=== PATIENT | female | born 1950 | race Caucasian/White ===

== ENCOUNTER 2024-04-29 15:31 | Emergency (ER) | payer MEDICARE, OTHER, SELFPAY ==
[2024-04-29 15:32] VITALS: BP 168/82
--- NOTE | 2024-04-29 15:52 | ED.MUSCINJ ---
HPI-Injury
General
Chief Complaint: Fall
Source: patient
Exam Limitations: none
Time Seen by Provider: 04/29/24 15:39
Nursing documentation reviewed up to this point in time: agreed with
History of Present Illness-Injury
Initial Injury comments:
73-year-old female presents with mom complaining of a fall onto her right wrist. She denies hitting her head.
Past History
Past History
ED Past Medical History: HTN, Hypercholesterolemia and Hypothyroidism
ED Past Surgical History: Appendectomy, Gynecological (Uterine, D&C) and Tonsilectomy
Social History
Tobacco: Non-smoker
Alcohol: None
Drug: None
Living: with family
Review of Systems
Review of Systems
Allergies reviewed?: Yes
All Other Systems: Not applicable
Constitutional: Reports no symptoms
EENT: Reports no symptoms
Respiratory: Reports no symptoms
Cardiac: Reports no symptoms
ABD/GI: Reports no symptoms
: Reports no symptoms
Musculoskeletal: Reports joint pain (Right wrist pain )
Skin: Reports no symptoms
Neurological: Reports no symptoms
Endocrine: Reports no symptoms
Hematologic/Lymphatic: Reports no symptoms
Psychiatric: Reports no symptoms
Phy Exam
Physical Exam
Physical Exam:
Physical Exam
General: no apparent distress, not acutely ill
Neck: supple. no meningeal signs. normal posterior pharynx
Heart: equal radial pulses.
HEENT: Pupils equal round reactive to light, EOMI
Lungs: no acute respiratory distress.
Abdomen: Nondistended
Neuro: alert and oriented. no focal neurological deficits
Skin: no rash
Psychiatric: well kept. interactive and cooperative
Extremities: no edema. no calf tenderness. negative homans. good distal pulses, tender to palpation left lateral wrist
Injury Course
Orders/Labs/Results
Orders:
Orders
04/29/24 15:31
Hand, Right 3 View [CR Hand - Right Min 3 Views] Urgent
Comment:
Reason For Exam: pain
04/29/24 15:35
Wrist, Right 3 Views [CR Wrist - Right Min 3 Views] Urgent
Comment:
Reason For Exam: fall
04/29/24 16:05
Thumb Spica Right-Treatment ONCE
MDM/Problems Addressed
Differential Diagnosis Includes:
Scaphoid fracture, wrist fracture
MDM/Problems Addressed:
73-year-old female with right wrist sprain. No fracture seen, however tenderness to palpation at snuffbox. Will splint and follow-up with orthopedics. No other injuries.
*Radiology
Radiology exam reviewed: preliminary read by ED provider (Right wrist and hand x-rays no fracture) and radiology read reviewed
*Pulse Oximetry
Patient hypoxic: no
*Critical Care Note
Total Time (30-74mins, 75-104mins- exclusive of procedures): Not Applicable
Patient Management
Social determinants of health affecting care: Living situation and Strong social support
Escalation/DeEscalation of care consider admission/obs:
Admit not indicated
ED Attending Note
-
Portions of this chart may have been created with voice recognition software.� Occasional wrong word or��sound alike� substitutions may have occurred due to the inherent limitations of voice recognition software.
Discharge Plan
Departure
Patient Disposition: Home (Routine Discharge)
Date of Disposition: 04/29/24
Time of Disposition: 16:22
Patient with high blood pressure during this ER visit?: Yes
Condition: Good
Discharge Problem:
Sprain of right wrist
Instructions: Wrist Sprain ED, BLOOD PRESSURE
Referrals:
Mel Little, [Family Provider] -
Tika Boucher DO [Active] - Call in 1-3 days for appt
Activity Restrictions/Additional Instructions:
Your xray did not show a fracture. Follow up with orthopedics for repeat xrays and reevaluation in 7-10 days. Return for any concerns.
Interventions
Interventions:
*Risk Screen - Suicide Last Done: 04/29/24 15:32
*General Assessment Last Done: 04/29/24 15:32
*Neglect/Abuse Screening Last Done: 04/29/24 15:32
*Nursing Disposition Last Done: 04/29/24 16:34
ED-Musculoskeletal Assessment Last Done: 04/29/24 16:00
ED- Neurological Assessment Last Done: 04/29/24 16:00
Discharge Date and Time
Print Language: LAO
== END 2024-04-29 16:34 | disposition home or self-care (01) ==
LOC: EMR 15:31
PROVIDERS: EMERGENCY PHYSICIAN Emergency Medicine; FAMILY PHYSICIAN Family Medicine
DX: S63.501A Unspecified sprain of right wrist, initial encounter (principal); W19.XXXA Unspecified fall, initial encounter; I10 Essential (primary) hypertension; E78.00 Pure hypercholesterolemia, unspecified; E03.9 Hypothyroidism, unspecified
CPT/HCPCS: 99283; 29125; 73110; 73130

== ENCOUNTER 2025-01-26 21:12 | Inpatient (IN) | payer MEDICARE, OTHER, SELFPAY ==
[2025-01-26] VITALS (9 sets, daily range): BP systolic 104–132; BP diastolic 60–80; BMI 23.1
[2025-01-26 17:08] LABS: Hematocrit 37.0 % (37.0-47.0); Hemoglobin 13.0 g/dL (12.0-16.0); Mean Corp Hgb Conc. 35.1 g/dL (33.0-37.0); Mean Corpuscular Volume 88.3 fL (81.0-99.0); Red Cell Dist. Width 14.1 % (11.5-14.5)
[2025-01-26 17:12] LABS: ALT (SGPT) 30 U/L (0-35); AST (SGOT) 44 U/L (14-36); Albumin 3.8 g/dl (3.5-5.0); Alkaline Phosphatase 85 U/L (38-126); Blood Urea Nitrogen 18 mg/dl (7-17); Calcium 8.8 mg/dl (8.4-10.2); Carbon Dioxide 27 mmol/L (22-30); Chloride 93 mmol/L (98-107); Glucose 111 mg/dl (70-99); Potassium 4.5 mmol/L (3.5-5.1); Sodium 125 mmol/L (135-145); Total Protein 6.8 g/dl (6.3-8.2); eGFR > 60.00
[2025-01-26 17:33] LABS: Platelet Count 68 10^3/uL (130-400)
[2025-01-26 17:34] LABS: Absolute Neutrophils -Man Diff 2.0 10^3/uL (1.4-6.5); Normal RBC Morphology Yes; Platelets Checked Yes; Total Cells Counted 100
[2025-01-26 19:36] LABS: Urine Character Clear (Clear)
--- NOTE | 2025-01-26 19:38 | ED.GENMED ---
History of Present Illness
General
Chief Complaint: Fatigue
Source: patient and spouse
Exam Limitations: clinical condition and altered mental status
Time Seen by Provider: 01/26/25 19:10
Nursing documentation reviewed up to this point in time: agreed with
History of Present Illness
History of Present Illness:
74-year-old female presents with weakness and fatigue onset a few days ago fairly strong she states she has been confused, decreased p.o. intake not much of an appetite, had outpatient blood work showed a low sodium and a low potassium has had no
diarrhea, she has hypothyroid on Synthroid sounds like glaucoma on timolol she drinks alcohol daily but not recently due to her illness here she is noted to be febrile, denies cough denies dysuria or frequency no abdominal pain is with her
states that she looks confused and weak had no falls, no rash
Past History
Past History
ED Past Medical History: HTN, Hypercholesterolemia and Hypothyroidism
ED Past Surgical History: Appendectomy, Gynecological (Uterine, D&C) and Tonsilectomy
Social History
Tobacco: Non-smoker
Alcohol: Daily
Drug: None
Personal:
Living: with family
Employment: Retired
Phy Exam
Physical Exam
Physical Exam:
Physical Exam
General: 74 female confused nontoxic febrile
Neck: Lips are slightly
Heart: Tachycardia
Lungs: no acute respiratory distress. clear bilaterally
Abdomen: Soft nontender
Neuro: She knows she is at the hospital she is not sure which unit she knows her name knows the year knows her most
Skin: no rash
Psychiatric: cooperative
Extremities: no edema.
Course
Orders/Labs/Results
Orders:
Orders
01/26/25 16:52
Complete Blood Count/With Diff Urgent
Comprehensive Metabolic Panel Urgent
Cortisol, Random Urgent
Comment: ADD ON
Lyme Progressive Urgent
Comment: ADD ON
Manual Differential Urgent
Serum Osmolality Urgent
Comment: ADD ON
TSH Urgent
Comment: ADD ON
01/26/25 19:09
Add On- LAB Urgent
Tests Added?: serum osm, tsh, cortisol,
01/26/25 19:29
Osmolality, Random Urine Urgent
Date Specimen was Collected: 01/26/25
Time Specimen was Collected: 19:27
Urinalysis Reflex To Culture Urgent
Date Specimen was Collected: 01/26/25
Time Specimen was Collected: 19:27
Urine Microscopic Reflex Cult Urgent
Urine Sodium Urgent
Date Specimen was Collected: 01/26/25
Time Specimen was Collected: 19:27
Urine Culture Urgent
CLARISSA Source: U
Specimen Description:
Date Specimen was Collected: 01/26/25
Time Specimen was Collected: 19:27
01/26/25 19:33
Acetaminophen [Tylenol] 650 mg PO NOW STA
CR Chest - 2 Views Urgent
Comment:
Reason For Exam: fever lwo Na
01/26/25 19:34
Electrocardiogram (*1) Urgent
Reason for Study: Tachycardia
EKG- Treatment ONCE
01/26/25 19:35
Add On- LAB Urgent
Tests Added?: lyme progressive
01/26/25 19:51
COVID-19 Antigen Urgent
Source: Nasal Swab
Lactic Acid Urgent
Blood Culture Q30M
CLARISSA Source: Blood/Venous
Specimen Description:
Influenza A+B Rapid Molecular Urgent
CLARISSA Source: Nasal Swab
Specimen Description:
01/26/25 20:15
Blood Culture Q30M
CLARISSA Source: Blood/Venous
Specimen Description:
0.9% Sodium Chloride 250 ml [Nss] 250 ml IV BOLUS
01/26/25 20:32
Add On- LAB Stat
Tests Added?: peripheral smear
Babesia Smear [Blood Parasites] Stat
CLARISSA Source: Blood/Venous
Specimen Description:
01/26/25 20:42
Admit/Transfer Patient As Directed
Co-Sign Provider:
Level of Care: Inpatient admission
Assign to:: Medical/Surgical
Physician / Group: kris
Diagnosis: fever
Reason for Hospitalization: fever
Expected length of stay greater than two midnights?: Yes
ELOS- Estimated Length of Stay in days: 3
I certify the patient meets the requirements for IP care: Yes
PRN Pain Medication Management As Directed
May give lesser potent ordered pain med per pt: Yes
preference::
Protocol:: Medication orders for pain may be administered in a
manner that supports deferring to patient preference
when the pt is:
- Requesting an ordered lesser potent pain medication.
Least to most potent pain medications are defined
as: acetaminophen < NSAID < tramadol < opioids
(morphine, oxycodone, hydromorphone).
- Requesting a lesser dose of the same medication IF
ORDERED.
- Requesting a less intrusive route of administration
if both routes are prescribed by the provider (PO <
IV).
01/26/25 20:43
Code Status As Directed
Resuscitation Status: Full Code
01/26/25 20:45
0.9% Sodium Chloride 1000 ml [Nss] 1,000 ml IV 125 mls/hr
01/26/25 23:00
BMP [Basic Metabolic Panel] Urgent
Urine Sodium Urgent
Abnormal Lab Results
01/26/25 01/26/25
16:52 19:29
WBC 2.9 L 10^3/uL
(4.8-10.8)
RBC 4.19 L 10^6/uL
(4.20-5.40)
Plt Count 68 L 10^3/uL
(130-400)
MPV 11.5 H fL
(7.4-10.4)
Lymphocytes (Manual) 19 L %
(20-51)
Monocytes (Manual) 12 H %
(2-9)
Sodium 125 L mmol/L
(135-145)
Chloride 93 L mmol/L
(98-107)
BUN 18 H mg/dl
(7-17)
Glucose 111 H mg/dl
(70-99)
Serum Osmolality 264 L mOsm/kg
(275-300)
Total Bilirubin 1.7 H mg/dl
(0.2-1.3)
AST 44 H U/L
(14-36)
Urine Ketones 3+ A
(Negative)
Ur Occult Blood Reflex 4+ A
(Negative)
Urine Urobilinogen 2+ A
(Neg - 1+)
Leukocyte Esterase Rfl 3+ A
(Negative)
Urine RBC 3-6 A /HPF
(0-2)
Urine Bacteria (Reflex) Many A
(Negative)
Urine Sodium 8 L mmol/L
(30-90)
Urine Albumin (Reflex) 2+ A
(Neg - Trace)
01/26/25 16:52
Vital Signs
Initial and Last Documented VS:
Initial Vital Signs
Temp Pulse Resp BP Pulse Ox
98.2 F 94 16 132/75 96
01/26/25 16:42 01/26/25 16:42 01/26/25 16:42 01/26/25 16:42 01/26/25 16:42
Last Documented Vital Signs
Temp Pulse Resp BP Pulse Ox
100.8 F H 84 20 132/66 97
01/26/25 19:15 01/26/25 20:30 01/26/25 20:15 01/26/25 20:00 07/23/25 20:30
MDM/Problems Addressed
Differential Diagnosis Includes:
Symptomatic hyponatremia, febrile illness, pneumonia UTI
MDM/Problems Addressed:
Confusion with low sodium and fever
Chronic conditions affecting care:
Thyroid
Acute Exacerbation and/or Progression of Chronic Illness:
Thyroid
*Radiology
Radiology exam reviewed: radiology read reviewed
*Pulse Oximetry
SaO2: 99
Oxygen Mode of Delivery: Room air
Patient hypoxic: no
*Critical Care Note
Total Time (30-74mins, 75-104mins- exclusive of procedures): 20
Update Note
Update Note:
Update suspect she is euvolemic perhaps hypovolemic does have a fever will check chest x-ray serum osm, urine urine lites admit
ED Attending Note
-
Portions of this chart may have been created with voice recognition software.� Occasional wrong word or��sound alike� substitutions may have occurred due to the inherent limitations of voice recognition software.
Discharge Plan
Departure
Patient Disposition: Admit
Date of Disposition: 01/26/25
Time of Disposition: 20:15
Admit to: Med/Surg
Presentation/result/management discussed w/ accepting MD/DO: Hospitalist
Patient with high blood pressure during this ER visit?: No
Condition: Fair
Covid-19: Negative COVID-19
Discharge Problem:
Acute hyponatremia, Fever
Prescriptions:
No Action
lisinopril 20 mg Tablet
20 mg PO HS
levothyroxine 25 mcg Tablet
25 mcg PO MOTUWETHFRSA
levothyroxine 25 mcg Tablet
50 mcg PO LOZA
ibuprofen 200 mg Tablet
400 mg PO DAILYPRN PRN (Reason: mild pain)
rosuvastatin 5 mg tablet
5 mg PO DAILY
Women's 50 Plus Multivitamin 400 mcg-500 mg calcium-20 mcg Tablet
1 tab PO DAILY
Referrals:
Mel Little DO [Family Provider, Family Practice]
Interventions
Interventions:
*Risk Screen - Suicide Last Done: 01/26/25 19:17
*General Assessment Last Done: 01/26/25 19:17
*Neglect/Abuse Screening Last Done: 01/26/25 19:17
*ED- Fall Risk Assessment Last Done: 01/26/25 19:17
*ED COVID-19 Vaccine History Last Done: 01/26/25 19:17
Discharge Date and Time
Print Language: FAROESE
[2025-01-26 19:41] LABS: Urine Squamous Cell >30 /LPF (Few)
[2025-01-26 20:13] LABS: COVID-19 Antigen Negative (Negative)
[2025-01-26 20:14] LABS: Cortisol, Random 32.7 ug/dl; TSH 2.47 uIU/ml (0.47-4.68)
--- NOTE | 2025-01-26 20:17 | HPS.HSE ---
Family Physician
-
Family Physician: Mel Little
Chief Complaint
-
weakness
fatigue
History of Present Illness
74-year-old female HTN, HLD, hypothyroidism presents with weakness and fatigue for four days. patient stated poor oral intake. she had low grade temp at home. denied PEÑALOZA,dizzy or syncope. denied congestion,cough, chest pain, sob. denied abdominal
pain,n,v,d. denied dysuria or hematuria. had outpatient blood work showed a low sodium and a low potassium. just pulled a tick from her.
leukopenia fever likely viral. she was noted to have low sodium. admitting for further management.
Medical History
Past Medical History
Past Medical History: Reports Other
Additional Past Medical History:
Medical screening hypertension
Hyperlipidemia
Osteoarthritis
Hypertension
Hypothyroidism
Past Surgical History: Reports Other
Additional Past Surgical History:
Tonsillectomy
Appendectomy
Social History
Tobacco: Non-smoker
Alcohol: Occasional
Drug: None
Personal:
Living: With Family
Family History
Family History: Not pertinent
Allergies / Home Medications
Allergies reflects when Allergies were last updated in [email or web address].
Home Medications with original date entered in [email or web address]
Allergy/Medication List:
Allergies
Allergy/AdvReac Type Severity Reaction Status Date / Time
No Known Allergies Allergy Verified 01/26/25 19:15
Home Medications
ibuprofen 200 mg tablet 400 mg PO DAILYPRN PRN mild pain 01/26/25
levothyroxine 25 mcg tablet 25 mcg PO MOTUWETHFRSA 01/26/25
levothyroxine 25 mcg tablet 50 mcg PO LOZA 01/26/25
lisinopril 20 mg tablet 20 mg PO HS 01/26/25
zhymoqhh-obg-ujhls ac 400 mcg-calcium carb 500 mg-vit K1 20 mcg tablet (Women's 50 Plus Multivitamin) 1 tab PO DAILY 01/26/25
rosuvastatin 5 mg tablet 5 mg PO DAILY 01/26/25
Review of Systems
-
Constitutional: Reports Fatigue
EENT: Reports No Symptoms
Respiratory: Reports No Symptoms
Cardiac: Reports No Symptoms
Abdomen/GI: Reports No Symptoms
: Reports No Symptoms
Musculoskeletal: Reports No Symptoms
Skin: Reports No Symptoms
Neurological: Reports Weakness
Endocrine: Reports No Symptoms
Hematologic/Lymphatic: Reports No Symptoms
Psych: Reports No Symptoms
Physical Exam
Vital Signs
Vital Signs
Temp Pulse Resp BP Pulse Ox
100.8 F H 84 18 126/74 99
01/26/25 19:15 01/26/25 19:15 01/26/25 19:15 01/26/25 19:15 01/26/25 19:39
Physical Exam
General: Well Developed, Well Nourished and No Apparent Distress
HEENT: NormoCephalic, Moist mucous membranes and Atraumatic
Respiratory: Clear
Cardiac: S1/S2 and Regular Rhythm; No Murmur or Rub
GI: Soft, Non Tender, Non Distended and Normal Bowel Sounds; No Organomegaly
Rectal: Deferred by Provider
Musculoskeletal: No Clubbing, No Cyanosis and No Edema
Skin: No Rash
Neuro: AO x 3 and Nonfocal/grossly intact
Psych: Calm
Laboratory Results
-
01/26/25 16:52
01/26/25 16:52
Laboratory Results
Lactic Acid 1.3 mmol/L (0.7-2.0) 01/26/25 19:51
Total Bilirubin 1.7 mg/dl (0.2-1.3) H 01/26/25 16:52
AST 44 U/L (14-36) H 01/26/25 16:52
ALT 30 U/L (0-35) 01/26/25 16:52
Alkaline Phosphatase 85 U/L (38-126) 01/26/25 16:52
Data Reviewed
-
Lab Data: Labs Reviewed by me
Impression/Plan
-
#generalized weakness likely from viral illness
-PT/OT consulted
#fever likely viral
-wbc 2.9,platelets 68,T BIli 1.7,AST 44
-COVID negative
- UA negative
- Chest x-ray pending
- Lyme pending
- Blood culture sent from ER
-obtain peripheral smear, parasite smear
-LDH In am
#hyponatremia likely hypovolemic
-na 125
-serum osmolality 264,urine NA 8
-repeat labs in 6 hours
-normal saline continued
#Hypothyroidism
-levothyroxine continued
#essential HTN
#HLD
-statin continued
-lisinopril continued with hold parameter
#DVT prophylaxis
-lovenox
#CODE status
-full code
--- NOTE | 2025-01-26 20:19 | W.PN.UPDATE ---
Update Note
Progress Note Update
Patient seen in conjunction with DMITRY. I agree defined signs and physical. I concur with assessment and plan unless stated otherwise.
Briefly, this is a 74-year-old female with past medical history of hypertension hypothyroidism and hyperlipidemia who presents to the emergency department with few days of weakness and fatigue.
She reported acute onset of fatigue and decreased exercise tolerance about 5 days ago. This progressed for the next 2 days and had associated loss of appetite some confusion and decreased p.o. intake. She had blood work done 2 days ago which
showed hyponatremia and a low potassium. She was unable to orally hydrate herself and continue to have symptoms. Spouse reported that the patient had low-grade fevers to as high as 99 at home. She denies any respiratory symptoms.
Patient denies vomiting, diarrhea, abdominal pain, dysuria hematuria or urinary frequency. She reports that she is on Synthroid and has been compliant with that medication.
Patient denies any cough, shortness of breath, fevers or chills. She denies any rash. She denies any new medications or supplement use. He has no recent travels or sick contacts. She family reports loss of the antiques in the environments and
often taking them off of the skin.
In the emergency department she had a blood pressure of 116/74 with a pulse of 84 and she was satting 99% on room air. She had a Tmax of 100.8.
CBC was notable for leukopenia and thrombocytopenia. WBCs 2.9, platelet count 68 with normal hemoglobin. She had 3% bands. Electrolytes were notable for sodium of 125 with a normal potassium. T. bili slightly elevated at 1.7, no significant
transaminitis.. Serum osmolality is 264. UA is contaminated and equivocal. Urine osmolarity is over 500 and a urine sodium of 8. COVID and flu are negative.
1. Fever -fever of unknown source without any localizing symptoms and associated with fatigue concerning for viral infection and possibly lyme/ticke borne illness
- Admit to MedSurg
- Blood cultures sent, ucx
- Check peripheral smear
- Lyme series
- Hold antibiotics for now unless fevers surpassing 101 Fahrenheit
- Antipyretics as needed
- consider doxycycline for presumed lyme if persistent fever and negative cultures.
2. Hyponatremia -decreased p.o. intake, no fluid losses, did have high urinary volumes and low urine, suspect hypovolemic. TSH and cortisol are normal.
- Check orthostatic vital sign
- Continue with some aggressive hydration with normal saline at 105 mL/h
- Repeat urine sodium after 2 L of normal saline
- Follow-up serum sodium to 8 hours
- nephrology consult
3. Leukopenia/Thrombocytopenia - suspect marrow suppression from viral illness vs tick borne illness
- monitor thrombocytopenia for now
- w/u as above
- parasite smear and peripheral smear
- check ldh
DVT prophylaxis SCDs
CODE STATUS�full code
[2025-01-26] MEDS: TYLENOL 650 MG PO (20:33)
[2025-01-26] MEDS: NSS 250 IV (20:33)
[2025-01-26] MEDS: NSS 1000 IV (21:15)
[2025-01-26 23:51] LABS: Blood Urea Nitrogen 15 mg/dl (7-17); Calcium 8.2 mg/dl (8.4-10.2); Carbon Dioxide 24 mmol/L (22-30); Chloride 99 mmol/L (98-107); Estimated Creatinine Clearance 63 ml/min; Glucose 118 mg/dl (70-99); Potassium 4.1 mmol/L (3.5-5.1); Sodium 127 mmol/L (135-145); eGFR > 60.00
[2025-01-27 00:02] VITALS: BMI 22.4
[2025-01-27 00:12] VITALS: BP 146/73
[2025-01-27] MEDS: ZESTRIL 20 MG PO ×2 (00:25→21:03)
[2025-01-27] MEDS: NSS 1000 IV ×2 (05:33→12:10)
[2025-01-27] MEDS: SYNTHROID 25 MCG PO (05:33)
[2025-01-27 07:40] VITALS: BP 127/72
[2025-01-27] MEDS: CRESTOR 5 MG PO (07:59)
[2025-01-27 09:11] LABS: Blood Urea Nitrogen 15 mg/dl (7-17); Calcium 8.2 mg/dl (8.4-10.2); Carbon Dioxide 26 mmol/L (22-30); Chloride 101 mmol/L (98-107); Estimated Creatinine Clearance 65 ml/min; Glucose 102 mg/dl (70-99); LDH 394 U/L (120-246); Potassium 4.6 mmol/L (3.5-5.1); Sodium 130 mmol/L (135-145); eGFR > 60.00
--- NOTE | 2025-01-27 11:03 | W.CON.NEPH ---
Consultation
-
Date/Time Consultation Requested: 01/27/2025 8:00 AM
Date/Time Consultation Performed: 01/27/2025 11:00 AM
Requesting Provider: Dr. Patel
Performing Provider: Dr. Wu
Reason for Consultation: Hyponatremia
Medical History
-
Chief Complaint: Hyponatremia
History of Present Illness:
74-year-old female HTN (lisinopril), HLD(on statin), hypothyroidism (levothyroxine) presents with weakness and fatigue for four days. Patient stated poor oral intake. she had low grade temp at home. denied PEÑALOZA,dizzy or syncope. denied
congestion,cough, chest pain, sob. denied abdominal pain,n,v,d. denied dysuria or hematuria. She had outpatient blood work showed a low sodium and a low potassium. just pulled a tick from her. Sodium was 125.
Past Medical History
hTN
Hyperlipidemia
Osteoarthritis
Hypertension
Hypothyroidism
Past Surgical History: Reports Other
Additional Past Surgical History:
Tonsillectomy
Appendectomy
Social History
Tobacco: Non-Smoker
Alcohol: Daily
Drug: None
Family History
Family History: Not Pertinent
Allergies / Home Medications
Allergy/AdvReac Type Severity Reaction Status Date / Time
No Known Allergies Allergy Verified 01/26/25 19:15
�Medication �Instructions �Recorded �Confirmed �Type
ibuprofen 200 mg tablet 400 mg PO DAILYPRN PRN mild pain 01/26/25 01/26/25 History
levothyroxine 25 mcg tablet 25 mcg PO MOTUWETHFRSA Thyroid 01/26/25 01/26/25 History
levothyroxine 25 mcg tablet 50 mcg PO LOZA Thyroid 01/26/25 01/26/25 History
lisinopril 20 mg tablet 20 mg PO HS Blood Pressure 01/26/25 01/26/25 History
naiaezzg-uri-fhilt ac 400 1 tab PO DAILY Thyroid 01/26/25 01/26/25 History
mcg-calcium carb 500 mg-vit K1 20
mcg tablet (Women's 50 Plus
Multivitamin)
rosuvastatin 5 mg tablet 5 mg PO DAILY High Cholesterol 01/26/25 01/26/25 History
Review of Systems
-
History Source: Patient
All other systems: Negative unless noted
Constitutional: Other (Weakness)
Abdomen/GI: Anorexia
Neurological: Other (Confusion)
Physical Exam
Vital Signs
Vital Signs
Temp Pulse Resp BP Pulse Ox
97.9 F 82 18 127/72 96
01/27/25 07:40 01/27/25 07:40 01/27/25 07:40 01/27/25 07:40 01/27/25 07:40
Lab Results
01/26/25 16:52
01/27/25 07:46
WBC 2.9 10^3/uL (4.8-10.8) L 01/26/25 16:52
RBC 4.19 10^6/uL (4.20-5.40) L 01/26/25 16:52
Hgb 13.0 g/dL (12.0-16.0) 01/26/25 16:52
Hct 37.0 % (37.0-47.0) 01/26/25 16:52
Plt Count 68 10^3/uL (130-400) L 01/26/25 16:52
Sodium 130 mmol/L (135-145) L 01/27/25 07:46
Potassium 4.6 mmol/L (3.5-5.1) 01/27/25 07:46
Chloride 101 mmol/L (98-107) 01/27/25 07:46
Carbon Dioxide 26 mmol/L (22-30) 01/27/25 07:46
BUN 15 mg/dl (7-17) 01/27/25 07:46
Creatinine 0.6 mg/dL (0.6-1.0) 01/27/25 07:46
eGFR > 60.00 01/27/25 07:46
Glucose 102 mg/dl (70-99) H 01/27/25 07:46
Calcium 8.2 mg/dl (8.4-10.2) L 01/27/25 07:46
Albumin 3.8 g/dl (3.5-5.0) 01/26/25 16:52
Physical Exam
General: AOx3, Nontoxic , NAD
HEENT: PERRL, EOMI, Anicteric, Conjunctivae Clear, Ear/Nose Intact, Hearing Normal, Oropharynx Clear/Moist, Dentition Intact, Facial Symmetry, Neck Supple, Neck: Trachea Midline, No JVD and No Thyromegaly, no Bruits
Respiratory: Crackles at left lung base normal lung excursion
Cardiac: S1/S2 and Regular Rate/Rhythm
Breast: Deferred by me
Abdomen: Soft, Nontender, Nondistended, Normal Bowel Sounds and No Hepatosplenomegaly
Rectal: Deferred by Provider
Genito-urinary: No Costovertebral Tenderness
Extremities: No Clubbing, No Cyanosis and No Edema
Skin: No Rash or open lesions
Neuro: Nonfocal/Grossly Intact, CN II-XII (Intact) and Strength (Musculoskeletal exam 5 out of 5 both upper and lower extremities)
Hematologic/Lymphatic: No Cervical Lymphadenopathy, No Submandibular Lymphadenopathy and No Supraclavicular Lymphadenopathy
Psych: Mood/afflect pleasant, Insight/judgement good and Appropriate
Vascular: plus 2 pedal and radial pulses
Data Reviewed
-
Radiology: Image Personally Visualized and interpreted (Chest x-ray clear)
Medical Tests (Nuc Med, Echo etc): Other (EKG reviewed normal sinus rhythm per personal review at 84 bpm)
Labs: Labs Reviewed by me (BMP, Urine sodium 8 urine osm 505)
Assessment/Plan
-
Impression
Hyponatremia
Dyslipidemia
Hypothyroidism
Hypertension
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
Plan:
Hyponatremia
- Appears to have hypovolemic component as patient responded favorably to isotonic saline urine sodium less than 10 supports hypovolemic hyponatremia
- Chest x-ray reviewed with nothing impressive noted however crackles noted in left lung field possibly related to pneumonia
- Thyroid function tests reviewed
- Okay to continue isotonic saline
--- NOTE | 2025-01-27 11:16 | CON.ID ---
Consultation
-
Date/Time Consultation Requested: January 27, 2025
Date/Time Consultation Performed: January 27, 2025
Requesting Provider: Dr. Toya Patel
Performing Provider: Dr. Sandra Hughes
Reason for Consultation: Fever
Chief Complaint / Past History
Chief Complaint
Fever and weakness
History of Present Illness
History obtained from the patient and from her at bedside. She is a 74-year-old female with history of hypothyroidism who presented to the hospital on January 26 due to approximately 4 to 5-day history of fever, malaise, and weakness.
Appetite has been poor. In the ER temperature 100.8, white count 2.9, platelet count 68. Chest x-ray showed atelectasis. She denies ill contacts. She does live in an area with a lot of ticks. She gardens frequently without use of DEET. She has
1 indoor cat. No headache or sinus congestion. No sore throat. No cough or shortness of breath. No nausea vomiting abdominal pain or diarrhea. No urine symptoms. No arthralgias. Positive myalgias.
Past History
Additional Past Medical History:
Hypertension
Hypothyroidism
Osteoarthritis
Appendectomy
Allergy History:
No Known Allergies Allergy (Verified 01/26/25 19:15)
Medications Reviewed: Yes
Current Antibiotics:
None
Social History
Tobacco: Non-Smoker
Alcohol: Occasional
Drug: None
Personal:
Living: With Family
Family History
Family History: Not Pertinent
Review of Systems
Review of Systems
General: Fever, Chills and Change in Appetite
HEENT: Negative Sinus Problems, Headache or Pharyngitis
Cardiovascular: Negative Chest Pain or Dyspnea
Respiratory: Negative Dyspnea or Cough
Gasteroenterology: Negative Nausea, Vomiting or Diarrhea
Genital / Urological: Negative Dysuria or Flank Pain
Endocrine: Weakness and Fatigue
Musculoskeletal: Myalgias; Negative Arthralgias
Neurological: Negative Dizziness
All systems: All other systems were reviewed and were negative
Vital Signs
Temp Pulse Resp BP Pulse Ox
97.9 F 82 18 127/72 96
01/27/25 07:40 01/27/25 07:40 01/27/25 07:40 01/27/25 07:40 01/27/25 07:40
Selected Entries
01/26/25
19:15
Temp 100.8 F H
Physical Exam
Physical Exam
Constitutional: No Acute Distress
Head: Other (No frontal or maxillary sinus tenderness)
Eyes: No Conjunctival Hemorrhage and Sclera Anicteric
Cardiovascular: Regular Rate and S1/S2
Pulmonary: Clear
Gastrointestinal: Soft, Non Tender, Non Distended and Normal Bowel Sounds
Genito-Urinary: Negative CVA Tenderness
Extremities: Negative Edema
Neurological: AO x 3; Negative Meningeal Signs
Lab / Diagnostic Study Results
01/26/25 16:52
01/27/25 07:46
Total Counted 100 01/26/25 16:52
Abs Neuts (Manual) 2.0 10^3/uL (1.4-6.5) 01/26/25 16:52
Segmented Neutrophils 66 % (42-75) 01/26/25 16:52
Band Neutrophils 3 % (0-3) 01/26/25 16:52
Lymphocytes (Manual) 19 % (20-51) L 01/26/25 16:52
Lactic Acid 1.3 mmol/L (0.7-2.0) 01/26/25 19:51
Ur Squamous Epith Cells >30 /LPF (Few) 01/26/25 19:29
Microbiology Results
Micro:
01/26/25 21:12 Blood Parasites Smear - Final
Blood/Venous Babesia species
01/26/25 21:12 Blood Culture - Pending
Blood/Venous
01/26/25 19:51 Influenza Types A & B (EDILBERTO) - Final
Nasal Swab Negative for Influenza A & B, NAAT
Negative results must be combined with clinical observations
and patient history.
Nucleic Acid Amplification test (NAAT)performed on the
[employer] platform.
01/26/25 19:51 Blood Culture - Pending
Blood/Venous
01/26/25 19:29 Urine Culture - Pending
Urine
01/26/25 CXR: Left basilar opacities favored to reflect atelectasis.
Assessment / Plan
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
# Fever
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
# Thrombocytopenia due to babesiosis
- Lyme pending
- Check anaplasma/Ehrlichia PCR
- repeat blood smear in am
- Start azithromycin 500mg po daily and atovaquone 750mg po bid.
- Trend temps/cbc.
- If no clinical response, suspect co-infection with other tick-borne organism.
[2025-01-27] MEDS: MEPRON SUSPENSION 750 MG PO ×2 (12:10→20:05)
[2025-01-27] MEDS: ZITHROMAX 500 MG PO (12:10)
--- NOTE | 2025-01-27 12:48 | CM ---
Chart reviewed. Met with pt at bedside. lives independently with and son in multi-story home. 3 steps to home entrance. BR on 1st floor. No DME or hx of SNF/HC
PCP: Mel Crook
Rx: Cuong/ Kaden Pena
Plan: Home with no needs
--- NOTE | 2025-01-27 13:25 | W.PN.HOSP.TC ---
Today's Communication/Plan
-
see A/P
Assessment / Plan
Assessment / Plan
HPI: 74-year-old female with past medical history of hypertension, hypothyroidism, and hyperlipidemia; who presented to the emergency department with few days of weakness and fatigue. She also c/o fever at home.
She had blood work done 2 days [employer] which showed hyponatremia and low potassium.
Her admission CBC was notable for leukopenia and thrombocytopenia (WBCs 2.9, platelet count 68, with normal hemoglobin). She had 3% bands. Electrolytes were notable for sodium of 125 with a normal potassium.
A/P:
# Sepsis POA 2/2 Babesiosis
# Leukopenia and Thrombocytopenia due to babesiosis
1.2% parasitemia
Follow repeat blood cultures, repeat blood smear
ID on board, Check anaplasma/Ehrlichia PCR, Follow Lyme serology
Started azithromycin 500mg po daily and atovaquone 750mg po bid.
Trend temps/CBC.
# Hyponatremia could be 2/2 decreased p.o. intake/ hypovolemia
TSH and cortisol are WNL
Sodium level improved from 125 on admission to 130, cont to monitor
renal on board
DVT prophylaxis: Lovenox SQ
CODE STATUS�full code
updated on the phone
total time spent 51 min
Anticipated Discharge: > 48 hours
Subjective/Interval History
-
Date of Service: January 27, 2025
Objective Data
-
Labs:
Laboratory Results
01/27/25
07:46
Sodium 130 L
Potassium 4.6
Chloride 101
Carbon Dioxide 26
BUN 15
Creatinine 0.6
Glucose 102 H
Calcium 8.2 L
Vital Signs:
Vital Signs
Temp Pulse Resp BP Pulse Ox
36.6 C 82 18 127/72 96
01/27/25 07:40 01/27/25 07:40 01/27/25 07:40 01/27/25 07:40 01/27/25 07:40
I&O
01/26/25 01/27/25 01/28/25
06:59 06:59 06:59
Intake Total 1365 / 1365
Balance 1365 / 1365
Review of Systems
-
History Source: Patient
All other systems: Reviewed and negative
Physical Exam
-
General: Well Developed, Well Nourished, No Apparent Distress, Comfortable and Conversant; Negative Respiratory Distress
HEENT: Normocephalic, Atraumatic, Nose Appears Normal and Ears Appear Normal; Negative Oxygen
Respiratory: Clear to Auscultation and Non Labored Respirations; Negative Accessory Resp Muscle Use
Cardiac: Regular Rhythm and S1/S2
GI: Soft, Nontender, Nondistended and Normal Bowel Sounds
Skin: Warm and Dry
Neuro: Awake, Alert, Oriented and AO x 3
Psych: Calm and Intact Judgement/Insight
Data Reviewed
-
Labs: Labs Reviewed by me, Discussed with Patient and Discussed with Family
[2025-01-27 15:05] LABS: Hepatitis C Antibody Negative (Negative)
[2025-01-27 15:50] VITALS: BP 129/67
[2025-01-27] MEDS: LOVENOX 40 MG SC (17:29)
[2025-01-27 23:25] VITALS: BP 133/75
[2025-01-28] MEDS: SYNTHROID 25 MCG PO (05:27)
[2025-01-28] MEDS: ZITHROMAX 500 MG PO (06:58)
[2025-01-28] MEDS: CRESTOR 5 MG PO (06:58)
[2025-01-28] MEDS: MEPRON SUSPENSION 750 MG PO (06:59)
[2025-01-28 07:41] VITALS: BP 112/61
[2025-01-28 07:41] LABS: Hematocrit 32.6 % (37.0-47.0); Hemoglobin 11.3 g/dL (12.0-16.0); Mean Corp Hgb Conc. 34.7 g/dL (33.0-37.0); Mean Corpuscular Volume 89.8 fL (81.0-99.0); Platelet Count 84 10^3/uL (130-400); Red Cell Dist. Width 14.3 % (11.5-14.5)
[2025-01-28 08:33] LABS: Nucleated Red Blood Cells % 0 %
[2025-01-28 08:38] LABS: ALT (SGPT) 26 U/L (0-35); AST (SGOT) 37 U/L (14-36); Albumin 3.0 g/dl (3.5-5.0); Alkaline Phosphatase 77 U/L (38-126); Blood Urea Nitrogen 9 mg/dl (7-17); Calcium 8.5 mg/dl (8.4-10.2); Carbon Dioxide 26 mmol/L (22-30); Chloride 103 mmol/L (98-107); Estimated Creatinine Clearance 65 ml/min; Glucose 102 mg/dl (70-99); Magnesium 2.1 mg/dl (1.6-2.3); Potassium 3.8 mmol/L (3.5-5.1); Sodium 132 mmol/L (135-145); Total Protein 5.7 g/dl (6.3-8.2); eGFR > 60.00
[2025-01-28 09:11] VITALS: BP 134/79; O2SAT 97
--- NOTE | 2025-01-28 10:08 | W.PN.HOSP.TC ---
Addendum entered and electronically signed by Viridiana aPtel MD 01/28/25 13:01:
OK for DC per ID
Continue azithromycin 500mg po daily and atovaquone 750mg po bid x 10 days through 02/05/25.
Repeat CBC/diff, CMP, blood parasite on 02/03 or 02/04.
total DC time 40 min
Original Note:
Today's Communication/Plan
-
see A/P
Assessment / Plan
Assessment / Plan
HPI: 74-year-old female with past medical history of hypertension, hypothyroidism, and hyperlipidemia; who presented to the emergency department with few days of weakness and fatigue. She also c/o fever at home.
She had blood work done 2 days [employer] which showed hyponatremia and low potassium.
Her admission CBC was notable for leukopenia and thrombocytopenia (WBCs 2.9, platelet count 68, with normal hemoglobin). She had 3% bands. Electrolytes were notable for sodium of 125 with a normal potassium.
A/P:
# Sepsis POA 2/2 Babesiosis
# Leukopenia and Thrombocytopenia due to babesiosis
Initial blood smear with 1.2% parasitemia, repeat blood smear 01/28 with 0.5% parasitemia
blood cultures so far negative
Pending anaplasma/Ehrlichia PCR, Lyme serology
ID on board, started azithromycin 500mg po daily and atovaquone 750mg po bid.
Trend temps/CBC. Fever has resolved.
# Hyponatremia could be 2/2 decreased p.o. intake/ hypovolemia
TSH and cortisol are WNL
Sodium level improved from 125 on admission to 132 today, cont to monitor
renal on board
DVT prophylaxis: Lovenox SQ
CODE STATUS�full code
DW in person
Anticipated Discharge: Within 24 hours
Subjective/Interval History
-
Date of Service: January 28, 2025
Objective Data
-
Labs:
Laboratory Results
01/28/25 01/28/25
07:02 07:03
WBC 2.3 L*
Hgb 11.3 L
Hct 32.6 L
Plt Count 84 L D
Sodium 132 L
Potassium 3.8
Chloride 103
Carbon Dioxide 26
BUN 9
Creatinine 0.6
Glucose 102 H
Calcium 8.5
Total Bilirubin 1.2
AST 37 H
ALT 26
Alkaline Phosphatase 77
Vital Signs:
Vital Signs
Temp Pulse Resp BP Pulse Ox
37.1 C 81 16 112/61 100
01/28/25 07:41 01/28/25 07:41 01/28/25 07:41 01/28/25 07:41 01/28/25 07:41
I&O
01/27/25 01/28/25 01/29/25
06:59 06:59 06:59
Intake Total 1365 / 1365 1460 / 1460
Balance 1365 / 1365 1460 / 1460
Review of Systems
-
History Source: Patient
All other systems: Reviewed and negative
Physical Exam
-
General: Well Developed, Well Nourished, No Apparent Distress, Comfortable and Conversant; Negative Respiratory Distress
HEENT: Normocephalic, Atraumatic, Nose Appears Normal and Ears Appear Normal; Negative Oxygen
Respiratory: Clear to Auscultation and Non Labored Respirations; Negative Accessory Resp Muscle Use
Cardiac: Regular Rhythm and S1/S2
GI: Soft, Nontender, Nondistended and Normal Bowel Sounds
Skin: Warm and Dry
Neuro: Awake, Alert, Oriented and AO x 3
Psych: Calm and Intact Judgement/Insight
Data Reviewed
-
Labs: Labs Reviewed by me, Discussed with Patient and Discussed with Family
--- NOTE | 2025-01-28 11:44 | W.PN.ID1 ---
Date of Service
Date of Service: January 28, 2025
Today's Communication
OK for dc. See below recs.
Assessment / Plan
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
# Fever - resolved
# Cytopenia due to babesiosis
- Lyme pending
- Check anaplasma/Ehrlichia PCR
- repeat blood smear 0.5% parasitemia.
- Continue azithromycin 500mg po daily and atovaquone 750mg po bid x 10 days through 02/05/25.
- Repeat CBC/diff, CMP, blood parasite on 02/03 or 02/04.
Lab script electronically sent to [facility].
Chief Complaint
-: Other (Babesia)
Subjective / Review of Systems
Feels much improved today.
Vital Signs / Physical Exam
Vital Signs
Vital Signs
Temp Pulse Resp BP Pulse Ox
98.8 F 81 16 112/61 100
01/28/25 07:41 01/28/25 07:41 01/28/25 07:41 01/28/25 07:41 01/28/25 07:41
Physical Exam
Constitutional: No Acute Distress
Cardiovascular: Regular Rate and S1/S2
Pulmonary: Clear
Gastrointestinal: Soft, Non Tender, Non Distended and Normal Bowel Sounds
Extremities: Negative Edema
Neurological: AO x 3
Objective Data
Lab Data
Lab Results
01/28/25 07:02
01/28/25 07:03
Estimated Creat Clear 65 ml/min 01/28/25 07:03
Lactic Acid 1.3 mmol/L (0.7-2.0) 01/26/25 19:51
Total Bilirubin 1.2 mg/dl (0.2-1.3) 01/28/25 07:03
AST 37 U/L (14-36) H 01/28/25 07:03
ALT 26 U/L (0-35) 01/28/25 07:03
Alkaline Phosphatase 77 U/L (38-126) 01/28/25 07:03
Most recent labs reviewed.
Micro Results:
01/28/25 07:02 Blood Parasites Smear - Final
Blood/Venous Babesia species
01/26/25 21:12 Blood Culture - Preliminary
Blood/Venous No Growth in 24 hours- Final report to follow
01/26/25 19:51 Blood Culture - Preliminary
Blood/Venous No Growth in 24 hours- Final report to follow
01/26/25 21:12 Blood Parasites Smear - Final
Blood/Venous Babesia species
01/26/25 19:51 Influenza Types A & B (EDILBERTO) - Final
Nasal Swab Negative for Influenza A & B, NAAT
Negative results must be combined with clinical observations
and patient history.
Nucleic Acid Amplification test (NAAT)performed on the
[employer] platform.
01/26/25 19:29 Urine Culture - Pending
Urine
01/26/25 CXR: Left basilar opacities favored to reflect atelectasis.
Care Review
Plan reviewed with: Physician (Dr. Patel)
--- NOTE | 2025-01-28 11:46 | CM ---
Met with patient at bedside with family. IMM given and form placed on chart. Possible D/C tomorrow
Plan: Home without needs
--- NOTE | 2025-01-28 13:23 | W.PN.NEPH.PH ---
Today's Communication / Plan
-
Okay for discharge from renal standpoint with blood work week follow-up with primary
Assessment/Plan
-
Impression
Hyponatremia
Dyslipidemia
Hypothyroidism
Hypertension
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
Plan:
Hyponatremia
- Appears to have hypovolemic component as patient responded favorably to isotonic saline urine sodium less than 10 supports hypovolemic hyponatremia
- Thyroid function tests reviewed
Sodium of 132
From renal standpoint okay for discharge
Increased protein and solute in diet
No outpatient follow-up needed
-
-
Date of Service: January 28, 2025
CC / HPI / ROS
-
Chief Complaint:
Hyponatremia
History of Present Illness:
Presents with low sodium hypovolemic responded to IV fluid
Review of Systems:
No chest pain or shortness of breath
Labs
-
Labs:
WBC 2.3 10^3/uL (4.8-10.8) L* 01/28/25 07:02
RBC 3.63 10^6/uL (4.20-5.40) L 01/28/25 07:02
Hgb 11.3 g/dL (12.0-16.0) L 01/28/25 07:02
Hct 32.6 % (37.0-47.0) L 01/28/25 07:02
Plt Count 84 10^3/uL (130-400) L D 01/28/25 07:02
Sodium 132 mmol/L (135-145) L 01/28/25 07:03
Potassium 3.8 mmol/L (3.5-5.1) 01/28/25 07:03
Chloride 103 mmol/L (98-107) 01/28/25 07:03
Carbon Dioxide 26 mmol/L (22-30) 01/28/25 07:03
BUN 9 mg/dl (7-17) 01/28/25 07:03
Creatinine 0.6 mg/dL (0.6-1.0) 01/28/25 07:03
eGFR > 60.00 01/28/25 07:03
Glucose 102 mg/dl (70-99) H 01/28/25 07:03
Calcium 8.5 mg/dl (8.4-10.2) 01/28/25 07:03
Albumin 3.0 g/dl (3.5-5.0) L 01/28/25 07:03
Physical Exam
-
Vital Signs:
Vital Signs
Temp Pulse Resp BP Pulse Ox
98.8 F 81 16 112/61 100
01/28/25 07:41 01/28/25 07:41 01/28/25 07:41 01/28/25 07:41 01/28/25 07:41
Respiratory:: Bilateral: CTA
Lung Excursion:: Normal
Abdomen:: Soft
Bowel Sounds:: Normal
Extremity Edema:: None: Bilateral:
[2025-01-28 13:30] VITALS: BP 130/65
--- NOTE | 2025-01-28 14:19 | W.DCSUMMARY ---
Discharge Summary
Discharge Data
Date of Admission: 01/26/25
Date of Discharge: 01/28/25
-
Pending Results: No
Hospital Course
Principal Diagnosis:
Babesiosis with leukopenia and thrombocytopenia
Hyponatremia could be 2/2 decreased p.o. intake/ hypovolemia, sodium level improved,
Chronic Diagnoses:�
Hypertension,
Hypothyroidism,
Hyperlipidemia
Consultations:�
Infectious disease
Nephrology
Procedures:�
None
Clinical course:�
This is a 74-year-old female with past medical history as stated above, who presented with weakness and fatigue. She also complained of fever at home.
Problem 1:
Babesiosis with leukopenia and thrombocytopenia.
Her initial blood smear showed 1.2% parasitemia, and repeat blood smear at 0.5% parasitemia.
Her blood cultures were negative.
She clinically improved on azithromycin and atovaquone which were both started while she was in the hospital.
She can continue with azithromycin 500mg po daily and atovaquone 750mg po bid x 10 days through 02/05/25 per ID.
At the time of discharge, anaplasma/Ehrlichia PCR and Lyme serology were still pending. She can follow these results outpatient.
She can check repeat CBC with differential, CMP and parasite blood smear in 5 days following discharge
Problem 2:
Hyponatremia could be 2/2 decreased p.o. intake/hypovolemia.
Her TSH and cortisol levels are WNL.
Her sodium level improved from 125 on admission to 132 on the day of discharge.
As for the rest of her medical problems, they were stable during her hospital stay.
Discharge Plan
-
Patient Disposition: Home (Routine Discharge)
Discharge Diagnosis/Procedures: Babesiosis;
Leukopenia and Thrombocytopenia due to babesiosis
Condition: Good
Diet: As tolerated
Activity: As tolerated
Driving Restrictions: As prior to admission
Blood Work: CBC/diff, CMP, blood parasite on 02/03 or 02/04.
Activity Restrictions/Additional Instructions:
Follow anaplasma/Ehrlichia PCR, Lyme serology with PCP outpatient
Referrals:
Mel Little DO [Family Provider, [facility]] - in less than 1 week
Additional Discharge Medication Instructions: Continue azithromycin 500 mg daily and atovaquone 750 mg twice daily x 10 days through 02/05/25.
Prescriptions:
New
atovaquone 750 mg/5 mL suspension
750 mg PO Q12H 10 Days Qty: 120 0RF
azithromycin 250 mg Tablet
500 mg PO DAILY 10 Days Qty: 20 0RF
Continued
lisinopril 20 mg Tablet
20 mg PO HS
levothyroxine 25 mcg Tablet
25 mcg PO MOTUWETHFRSA
levothyroxine 25 mcg Tablet
50 mcg PO LOZA
ibuprofen 200 mg Tablet
400 mg PO DAILYPRN PRN (Reason: mild pain)
rosuvastatin 5 mg tablet
5 mg PO DAILY
Women's 50 Plus Multivitamin 400 mcg-500 mg calcium-20 mcg Tablet
1 tab PO DAILY
Discharge Orders:
Discharge Patient (As Directed); Ordered 01/28/25
Ordered By: Viridiana Patel
Discharge Date and Time
Discharge Date/Time: 01/28/25 14:04
Print Language: OCCITAN
[2025-01-31 13:36] LABS: Lyme Antibody Screen, EIA Presump. Positive (Negative)
== END 2025-01-28 14:04 | disposition home or self-care (01) | DRG 872 ==
LOC: 4 EAST ACU 21:12
PROVIDERS: Registered Nurse; Student in an Organized Health Care Education/Training Program; ADMITTING PHYSICIAN Internal Medicine; ATTENDING PHYSICIAN Internal Medicine; CONSULT PHYSICIAN Specialist; EMERGENCY PHYSICIAN Emergency Medicine; FAMILY PHYSICIAN Family Medicine; OTHER PHYSICIAN Internal Medicine Infectious Disease
DX: A41.9 Sepsis, unspecified organism (principal); B60.00 Babesiosis, unspecified; E87.1 Hypo-osmolality and hyponatremia; J98.11 Atelectasis; D69.59 Other secondary thrombocytopenia; D72.819 Decreased white blood cell count, unspecified; E86.1 Hypovolemia; E03.9 Hypothyroidism, unspecified; I10 Essential (primary) hypertension; E78.00 Pure hypercholesterolemia, unspecified; M19.90 Unspecified osteoarthritis, unspecified site; Z79.890 Hormone replacement therapy; Z11.52 Encounter for screening for COVID-19
CPT/HCPCS: 71046; 80048; 80053; 81003; 81015; 82533; 83605; 83615; 83735; 83930; 83935; 84300; 84443; 85025; 86617; 86618; 86803; 87015; 87040; 87086; 87207; 87468; 87484; 87502; 87798; 87811; 93005; 96360; 97162; 99285